=== PATIENT | male | born 1990 | race Caucasian/White ===

== ENCOUNTER 2017-05-14 13:05 | Emergency (ER) | payer SELFPAY ==
[~2017-05-14] VITALS: Ht 167.6 cm; Wt 71.0 kg
[2017-05-14 13:11] VITALS: BP 129/76; PULSE 81; RESP 16; TEMP 98.6; O2SAT 99
[2017-05-14 14:13] VITALS: BP 139/74; PULSE 66; RESP 16; O2SAT 100
[2017-05-14] MEDS ORDERED: MECL-62 PO (14:21)
--- NOTE | 2017-05-14 14:29 | PD ---
HPI Chief Complaint: Dizziness Time Seen by Provider: 14:09 Travel History International Travel<30 days: No Contact w/Intl Traveler<30days: No Traveled to known affect area: No History of Present Illness HPI This patient complains of intermittent spells of vertigo times one week. Severity is moderate. They resolve spontaneously. No headache or muscle weakness or sensory loss or speech slurring or confusion. 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 He never got it evaluated. PFSH Past Medical History Hx Anticoagulant Therapy: No Diabetes: No Tetanus Vaccination: Unknown Influenza Vaccination: No Past Surgical History Appendectomy: Yes Social History Alcohol Use: No Tobacco Use: No Substance Use: No Allergies-Medications (Allergen,Severity, Reaction): Coded Allergies: No Known Allergies (Unverified , 05/14/17) Reported Meds & Prescriptions Reported Meds & Active Scripts Active Meclizine (Meclizine HCl) 25 Mg Tab 25 Mg PO TID PRN Review of Systems General / Constitutional: No: Fever HENT: No: Headaches Cardiovascular: No: Chest Pain or Discomfort Respiratory: No: Cough Physical Exam Narrative GENERAL: Well-nourished, well-developed patient in no apparent distress. SKIN: Focused skin assessment reveals no rash and nodules. Skin is Warm and dry. HEAD: Atraumatic. Normocephalic. EYES: Pupils equal and round. No scleral icterus. No injection or drainage. ENT: No nasal bleeding or discharge. Mucous membranes pink and moist. TMs and ear canals and pinnas are all normal NECK: Trachea midline. No JVD. CARDIOVASCULAR: Regular rate and rhythm. No murmur appreciated. RESPIRATORY: No accessory muscle use. Clear to auscultation. Breath sounds equal bilaterally. GASTROINTESTINAL: Abdomen soft, non-tender, nondistended. Hepatic and splenic margins not palpable. MUSCULOSKELETAL: No obvious deformities. No clubbing. No cyanosis. No edema. NEUROLOGICAL: Awake and alert. No obvious cranial nerve deficits. Motor grossly within normal limits. Normal speech. PSYCHIATRIC: Appropriate mood and affect; insight and judgment normal. Data Data Last Documented VS Vital Signs Date Time Temp Pulse Resp B/P Pulse Ox O2 Delivery O2 Flow Rate FiO2 05/14/17 14:13 16 100 Room Air 05/14/17 14:13 66 139/74 05/14/17 13:11 98.6 [facility] Medical Decision Making Medical Screen Exam Complete: Yes Emergency Medical Condition: Yes Medical Record Reviewed: Yes Differential Diagnosis Positional vertigo, tinnitus, labyrinthitis Narrative Course I have reviewed the patient's electronic medical record. Patient is neurologically intact. He has normal exam and no objective findings. Vital signs are normal I doubt this incident were metal hit his ear when he was welding has anything to do with this because it's 2 months later He has positional vertigo I prescribed him some meclizine to try No indication for emergent imaging He should follow-up with primary care physician Diagnosis Primary Impression: Positional vertigo Qualified Code: H81.10 - Positional vertigo, unspecified laterality Additional Instructions: The patient was advised to follow up with their physician and return if they worsen. The patient was warned about potential sedation for the medications they will receive on prescription. Med/Other Pt SpecificInfo: Prescription(s) given Scripts Meclizine 25 Mg Tab25 Mg PO TID PRN (VERTIGO) #20 TAB Ref 0 Prov:Scout Gonzales MD 05/14/17 Disposition: 01 DISCHARGE HOME Condition: Stable Scout Gonzales MD May 14, 2017 14:29
== END 2017-05-14 14:48 | disposition home or self-care (01) ==
LOC: PHED 13:05
DX: H81.10 Benign paroxysmal vertigo, unspecified ear (principal)
CPT/HCPCS: 99283

== ENCOUNTER 2017-06-03 11:37 | Emergency (ER) | payer MEDICAID ==
[~2017-06-03] VITALS: Ht 167.6 cm; Wt 76.0 kg
[~2017-06-03 11:37] MED LIST: MECL-62 PO
[2017-06-03 11:44] VITALS: BP 130/75; PULSE 81; RESP 16; TEMP 99.2; O2SAT 96
--- NOTE | 2017-06-03 12:34 | PD ---
HPI Chief Complaint: Abdominal Pain Time Seen by Provider: 12:01 Travel History International Travel<30 days: No Contact w/Intl Traveler<30days: No Traveled to known affect area: No History of Present Illness HPI Is a 27 year-old woman who presents to the emergency department complaining that he saw small white eggs in his stool. He states he's had intermittent abdominal problems since he was in the [employer] 6 or 7 years ago. He describes alternating loose stools and constipation, associate with some abdominal cramping. He normally goes before 5 times a day. He states his mom has IBS. Is no family history of inflammatory bowel disease. His never noticed blood or mucus in his stool. He states today he saw about a dozen times white pellets in his stool, about the size of a gr of rice but a little bit more rounded. He had been seen for vertigo, diagnoses BPPV a month or so ago. He states he was having intermittent bouts of intense vertigo lasting about 1-2 minutes. These have mostly resolved. He was researching online about tapeworms was worried that he may have had tape worms in his brain. He looks well. No other complaints. No recent undercooked or unusual foods. History Past Medical History Medical History: Denies Significant Hx Influenza Vaccination: No Social History Alcohol Use: No Tobacco Use: No Allergies-Medications (Allergen,Severity, Reaction): Coded Allergies: No Known Allergies (Unverified , 06/03/17) Reported Meds & Prescriptions Reported Meds & Active Scripts Active No Active Prescriptions or Reported Medications Review of Systems Except as stated in HPI: all other systems reviewed are Neg Physical Exam Narrative GENERAL: Well-appearing 27 year-old woman, no acute distress. SKIN: Focused skin assessment warm/dry. CARDIOVASCULAR: Regular rate and rhythm. No murmur appreciated. RESPIRATORY: No accessory muscle use. Clear to auscultation. Breath sounds equal bilaterally. GASTROINTESTINAL: Abdomen soft, non-tender, nondistended. Hepatic and splenic margins not palpable. MUSCULOSKELETAL: No obvious deformities. No clubbing. No cyanosis. No edema. NEUROLOGICAL: Awake and alert. No obvious cranial nerve deficits. Motor grossly within normal limits. Normal speech. PSYCHIATRIC: Appropriate mood and affect; insight and judgment normal. Data Data Last Documented VS Vital Signs Date Time Temp Pulse Resp B/P Pulse Ox O2 Delivery O2 Flow Rate FiO2 8/1/17 11:44 99.2 81 16 130/75 96 Orders Stool Ova And Parasite Screen (06/03/17 12:16) Enteric Path (Stool) (06/03/17 12:16) MDM Medical Decision Making Medical Screen Exam Complete: Yes Emergency Medical Condition: Yes Differential Diagnosis IBS, anxiety, parasite, tapeworm, other Narrative Course Medical decision making 27-year-old, little bit anxious, irregular bowel movements and abnormal abdominal cramping for years, likely IBS. No history of IVDU. No blood. Today with some abnormal stool findings. Concern for parasites. I think this is unlikely but if he is able to provide a stool sample we can check for a period otherwise welcome follow-up with his clinic for routine primary care. Diagnosis Primary Impression: Abnormal stools Referrals: [facility] 1 week Patient Instructions: General Instructions Additional Instructions: Follow-up with his clinic for routine primary care. Return to the emergency department for any new or worsening symptoms. Med/Other Pt SpecificInfo: No Change to Meds Scripts No Active Prescriptions or Reported Meds Disposition: 01 DISCHARGE HOME Condition: Stable Juan Castro MD Jun 03, 2017 12:34
== END 2017-06-03 13:03 | disposition home or self-care (01) ==
LOC: PHED 11:37
DX: R19.5 Other fecal abnormalities (principal)
CPT/HCPCS: 87328; 87329; 87506; 99283